=== PATIENT | male | born 1975 | race Two or more races ===

== ENCOUNTER → 2024-11-22 | Outpatient (CLI) | payer BC, SELFPAY ==
[2024-11-22 08:09] LABS: Collection Type, Urine Clean Catch; Squamous Epithelial Cell,Urine 0 /hpf (0-5)
[2024-11-22 08:43] LABS: Basophils % (Auto) 1 % (0-2.5); Eosinophils # (Auto) 0.1 Thou/mm3 (0.0-0.5); Eosinophils % (Auto) 2 % (0-10); Hemoglobin 11.6 g/dL (13.5-16.0); Immature Granulocytes % (Auto) 1 % (0-0); Immature Granulocytes Auto 0.03 Thou/mm3 (0.00-0.00); Lymphocytes # (Auto) 0.8 Thou/mm3 (1.0-4.8); Lymphocytes % (Auto) 17 % (10-50); Mean Corpuscular HGB Conc 31.4 g/dl (31.0-37.0); Mean Corpuscular Hemoglobin 26.8 pg (25.0-35.0); Mean Corpuscular Volume 86 fL (80-100); Monocytes # (Auto) 0.8 Thou/mm3 (0.0-0.8); Monocytes % (Auto) 17 % (0-12); Neutrophils % (Auto) 63 % (37-80); Nucleated Red Blood Cell % 0 /100 WBC (0); Platelet Count 196 Thou/mm3 (140-440); RDW Standard Deviation 49.4 fL (35.1-43.9); Red Blood Count 4.33 Miln/mm3 (4.50-5.90); White Blood Count 4.7 Thou/mm3 (3.8-10.6)
[2024-11-22 08:48] LABS: Bacteria,Urine Rare; Bilirubin,Urine Negative (Negative); Blood,Urine Negative (Negative); Clarity,Urine Clear (Clear/Hazy); Color,Urine Yellow (Lt Yel-Yel); Glucose, Urine Negative (Negative); Hyaline Casts,Urine < 1 /hpf (0-1); Ketones,Urine Trace (Negative); Leukocyte Esterase,Urine Negative (Negative); Nitrite,Urine Negative (Negative); PH,Urine 6.5 (5.0-7.0); Protein,Urine Trace (Neg - Trace); RBC,Urine 1 /hpf (0-3); Specific Gravity,Urine 1.022 (1.001-1.035); WBC,Urine 1 /hpf (0-5)
[2024-11-22 08:48] LABS: Glucose Estimated Average 103 mg/dL (80-131); Hemoglobin A1C 5.2 % Hgb (4.8-6.0)
[2024-11-22 09:08] LABS: Creatinine MALB Rnd Ur 158 mg/dL (30-125); Microalbumin Creat Ratio 6 mg/gCrea (<30); Microalbumin, Random Urine 10 mg/L (0-300)
[2024-11-22 09:09] LABS: Alanine Aminotransferase 115 U/L (10-49); Albumin, Serum 4.6 gm/dL (3.5-5.0); Albumin/Globulin Ratio 1.8 (1.2-2.2); Alkaline Phosphatase 75 U/L (46-116); Anion Gap 11 (7-16); Aspartate Amino Transferase 105 U/L (0-34); BUN/Creatinine Ratio 17 Ratio (12-20); Bilirubin,Total 0.8 mg/dL (0.3-1.2); Blood Urea Nitrogen 17 mg/dL (9-23); Calcium 9.3 mg/dL (8.3-10.6); Calcium (Corrected) 9.3 mg/dL (8.5-10.1); Carbon Dioxide 25.3 mMol/L (20.0-31.0); Cardiac Risk Estimate 1.7 RATIO (4.0-6.7); Chloride 97 mMol/L (98-107); Cholesterol 202 mg/dL (132-200); Globulin 2.6 gm/dL (2.3-3.5); Glucose 111 mg/dL (74-106); HDL Cholesterol 122 mg/dL (40-60); LDL Cholesterol,Calculated 66 mg/dL (0-130); Osmolality,Calculated 268 (275-295); Potassium 3.6 mMol/L (3.4-5.1); Sodium 133 mMol/L (136-145); Thyroid Stimulating Hormone 0.92 uIU/mL (0.55-4.78); Total Protein 7.2 gm/dL (5.7-8.2); Triglycerides 69 mg/dL (30-150); eGFR > 60 See Note
[2024-11-22 09:10] LABS: Prostate Specific Antigen 1.93 ng/mL (0-4.00)
[2024-11-22 09:13] LABS: Vitamin B12 933 pg/mL (211-911)
== END | disposition home or self-care (01) ==
PROVIDERS: PCP Internal Medicine; Referring Provider Internal Medicine; Visit Provider Internal Medicine
DX: Z00.00 Encounter for general adult medical examination without abnormal findings (principal); E11.9 Type 2 diabetes mellitus without complications; E78.5 Hyperlipidemia, unspecified; I10 Essential (primary) hypertension
CPT/HCPCS: 36415; 80053; 80061; 81001; 82043; 82306; 82570; 82607; 83036; 84153; 84443; 84550; 85025

== ENCOUNTER 2025-01-23 09:42 | Outpatient (AMB) | payer BC, SELFPAY ==
--- NOTE | 2025-01-23 09:48 | ORTHONT_ITS ---
Vital signs 01/23/25 09:54 Height 1.8 m Height Method Measured Weight 114.986 kg Weight Measurement Method Standing Scale BMI 35.3 BP 144/88 H Blood Pressure Source Automatic Cuff Blood Pressure Location Left Upper Arm Position Sitting Respiration 18 Pulse 97 Pulse Source Monitor Temp 97.6 F Temp Source Temporal Artery Scan Pulse Oximetry (%) 98 Oxygen Delivery Method Room Air Med/Allergies Allergies & Medications Allergies No Known Allergies Allergy (Verified 01/23/25 09:55) Medication Reconciliation amlodipine 10 mg tablet 10 mg PO QDAY #30 tabs 01/31/22 [Rx Confirmed 01/23/25] metformin 500 mg tablet 500 mg PO QDAY 01/31/22 [History Confirmed 01/23/25] losartan 100 mg-hydrochlorothiazide 25 mg tablet 1 tab PO QDAY 06/02/23 [History Confirmed 01/23/25] meloxicam 7.5 mg tablet 7.5 mg PO QDAY #45 tabs 01/23/25 [Rx] Exam Exam Breathing is nonlabored. Patient has a normal mood and affect. Bilateral extremities were evaluated and demonstrates sensation intact to light touch. Palpable pedal pulses are present. No significant edema is present. Bilateral hips were examined. The patient has no pain with log roll of the hips. Internal rotation to 30 degrees and external rotation to 30 degrees is painless. Negative FADIR. Left knee was examined today. The left knee is in reasonable alignment. Range of motion from 0-120 degrees. Knee is stable to varus and valgus as well as AP translation with <5mm. Patient has a negative McMurrays. There is no pain with patellofemoral compression and no crepitus noted. The knee is nontender to palpation. The right knee was also examined. The right knee is in varus alignment. Range of motion from 0-115 degrees. Knee is stable to varus and valgus as well as AP translation with <5mm. Patient has a negative McMurrays. There is no pain with patellofemoral compression and no crepitus noted. The knee is tender to palpation medially. X-rays demonstrate moderate joint space narrowing Assessment and Plan Problem List (1) Arthritis of both knees: Status: Acute Plan: Patient is a pleasant 50-year-old male with bilateral knee pain and bilateral knee arthritis of significant severity. We discussed different treatment options. We will get a weightbearing x-ray and likely do a cortisone injection at the next visit. I also sent him a prescription for meloxicam. Office Procedures GNS Level of Care Nursing/Assessment Patient Status: Initial/New Patient Nursing Assessment/Reassesment: Medication Reconciliation, Orthostatic Vitals, Update PMH in EMR and Vital Signs Coordination of Care: Complex Care and Chronic Disease 1-5, Education Complex Pt/Fam, Consent,records obtained, informed consent, Lab and Imaging orders, Results/Orders obtained and Staff clarify orders New Patient Charge New Patient Point Assignment: 1119 New Patient Point Charge: SPRING FORGER Level 4 (3507-1610) MA Intake Visit Data Collection New Patient or Established: New Patient (never been to [facility]) Reason for Visit:: RIGHT KNEE PAIN EFFUSION Seen by Clinical Staff ONLY (RN/MA): No Program Eligibility Specialist Required: No PCP or OBGYN visit in last 3 months: Yes Hx Now: No Do You Feel Safe at Home: Yes Authorities Contacted: N/A Questionairres Past Medical History Past Medical History Have you ever been diagnosed with any of the following: Cardiology Problems Hypercholesterolemia: No Congestive Heart Failure: No Hypertension: Yes Respiratory Problems Chronic Obstructive Pulmonary Disease (COPD): No Smoking: No Smoking Cessation Counseling: No Smoking Exposure: No Genital/Urinary Problems Renal Disease: No Endocrine Problems Diabetes Mellitus Type 1: No Diabetes Mellitus Type 2: Yes Subjective Visit Visit for: new patient, follow up visit and knee Immunization / Flu Flu Vaccine in the Last 12 Months: No Flu Vaccine Exclusion Criteria: Refused by Patient History of Present Illness Chief complaint: RIGHT KNEE PAIN EFFUSION Date of injury / onset of symptoms: 1 YEAR Patient is a 50-year-old male with a right greater than left knee pain has been ongoing for over a year. He has not had any injections. He tried Celebrex. He has had a history of gout in his right toe. 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
[2025-01-23 09:54] VITALS: BP 144/88; PULSE 97; RESP 18; TEMP 36.4; O2SAT 98; BMI 35.3
--- NOTE | 2025-01-23 10:02 | XR_ITS ---
Examination: Bilateral knees 2 views Right lateral knee left lateral knee 2 views Bilateral axial knees single view Date and time: January 23, 2025 11 1007 hours INDICATIONS: Bilateral knee pain one year worse the last 4 months. FINDINGS: Moderate osteopenia. Advanced narrowing lateral joint space right knee Mild osteoarthritis medial joint space right knee Moderate osteoarthritis right patellofemoral joint Mild narrowing medial joint space left knee Moderate osteoarthritis left patellofemoral joint No fractures IMPRESSION: Advanced narrowing lateral joint space right knee Moderate osteoarthritis right patellofemoral joint
== END 2025-01-23 10:08 | disposition home or self-care (01) ==
LOC: HODSRG 09:42
PROVIDERS: PCP Internal Medicine; Referring Provider Internal Medicine; Supervising Provider Orthopaedic Surgery Adult Reconstructive Orthopaedic Surgery; Visit Provider Orthopaedic Surgery Adult Reconstructive Orthopaedic Surgery
DX: M17.0 Bilateral primary osteoarthritis of knee (principal); M25.562 Pain in left knee; M25.561 Pain in right knee; I10 Essential (primary) hypertension; E11.9 Type 2 diabetes mellitus without complications
CPT/HCPCS: 73564; 99204; G0463

== ENCOUNTER 2025-02-08 07:47 | Outpatient (AMB) | payer BC, SELFPAY ==
[2025-02-08 07:57] VITALS: BP 105/70; PULSE 101; RESP 18; TEMP 36.3; O2SAT 97; BMI 35.6
--- NOTE | 2025-02-08 07:57 | PD.ORTHCLVIS ---
Vital signs 02/08/25 07:57 Height 1.8 m Height Method Measured Weight 115.468 kg Weight Measurement Method Standing Scale BMI 35.6 BP 105/70 Blood Pressure Source Automatic Cuff Blood Pressure Location Left Upper Arm Position Sitting Respiration 18 Pulse 101 H Pulse Source Monitor Temp 97.3 F Temp Source Temporal Artery Scan Pulse Oximetry (%) 97 Oxygen Delivery Method Room Air Med/Allergies Allergies & Medications Allergies No Known Allergies Allergy (Verified 02/08/25 07:58) Medication Reconciliation amlodipine 10 mg tablet 10 mg PO QDAY #30 tabs 01/31/22 [Rx Confirmed 02/08/25] metformin 500 mg tablet 500 mg PO QDAY 01/31/22 [History Confirmed 02/08/25] losartan 100 mg-hydrochlorothiazide 25 mg tablet 1 tab PO QDAY 06/02/23 [History Confirmed 02/08/25] meloxicam 7.5 mg tablet 7.5 mg PO QDAY #45 tabs 01/23/25 [Rx Confirmed 02/08/25] Exam Exam Breathing is nonlabored. Patient has a normal mood and affect. Bilateral extremities were evaluated and demonstrates sensation intact to light touch. Palpable pedal pulses are present. No significant edema is present. Bilateral hips were examined. The patient has no pain with log roll of the hips. Internal rotation to 30 degrees and external rotation to 30 degrees is painless. Negative FADIR. Left knee was examined today. The left knee is in reasonable alignment. Range of motion from 0-120 degrees. Knee is stable to varus and valgus as well as AP translation with <5mm. Patient has a negative McMurrays. There is no pain with patellofemoral compression and no crepitus noted. The knee is nontender to palpation. The right knee was also examined. The right knee is in varus alignment. Range of motion from 0-115 degrees. Knee is stable to varus and valgus as well as AP translation with <5mm. Patient has a negative McMurrays. There is no pain with patellofemoral compression and no crepitus noted. The knee is tender to palpation medially. X-rays demonstrate lateral joint space narrowing on the right and medial joint space narrowing on the left Assessment and Plan Problem List (1) Arthritis of both knees: Status: Acute Plan: Patient is a pleasant 50-year-old male with bilateral knee pain and bilateral knee arthritis of significant severity. We discussed different treatment options. He has significant arthritis and we will start with injections. We discussed that he is on the young side for his age. We also discussed weight loss Recommend knee cortisone injection as patient would like to proceed with conservative treatment at this time. The risks and benefits of the procedure were reviewed with the patient and patient gave verbal consent to continue with the procedure. Procedure: performed by Dr. Yañez Using sterile technique the Right knee was thoroughly prepped with alcohol, and approximately 1 cc of Depo-Medrol 80mg/mL and 4 cc of 0.2% ropivacaine was injected without resistance into the medial tibial femoral joint space. The patient tolerated the procedure. Recommend knee cortisone injection as patient would like to proceed with conservative treatment at this time. The risks and benefits of the procedure were reviewed with the patient and patient gave verbal consent to continue with the procedure. Procedure: performed by Dr. Yañez Using sterile technique the left knee was thoroughly prepped with alcohol, and approximately 1 cc of Depo-Medrol 80mg/mL and 4 cc of 0.2% ropivacaine was injected without resistance into the medial tibial femoral joint space. The patient tolerated the procedure. Office Procedures GNS Level of Care Nursing/Assessment Patient Status: Established Patient Nursing Assessment/Reassesment: Medication Reconciliation, Orthostatic Vitals, Update PMH in EMR and Vital Signs Coordination of Care: Complex Care and Chronic Disease 1-5, Education Complex Pt/Fam, Consent,records obtained, informed consent, Results/Orders obtained and Staff clarify orders Established Patient Charge Established Patient Point Assignment: 105 Established Patient Point Charge: EP Level 3 (80-115) Surgical Proc/IM SQ injection Major Surgical Procedure: Yes (BILATERAL KNEE INJECTION) Medication Given Medication Given Medication Given: Yes Documented Dose Given: 1 Route: Infiitration Medication Given Medication Given Medication Given: Yes Documented Dose Given: 1 Route: Infiitration Medication Given Medication Given Medication Given: Yes Documented Dose Given: 4 Route: Infiitration Medication Given Medication Given Medication Given: Yes Documented Dose Given: 4 Route: Infiitration Office Meds methylprednisolone acetate 80 mg/mL suspension for injection Performing Provider: Christiano Yañez MD Performing Location: [facility] Administered by: Christiano Yañez MD on 02/08/25 11:55 Dose Route Admin Location Dispensed Lot Number Expiration Date Package [facility] Lidar Analyst 80 mg intra-articular 1 mL [id number] 11/03/26 [address]-0 [id number] [employer] methylprednisolone acetate 80 mg/mL suspension for injection Performing Provider: Christiano Yañez MD Performing Location: [facility] Administered by: Christiano Yañez MD on 02/08/25 11:55 Dose Route Admin Location Dispensed Lot Number Expiration Date Package NDC NDC Lidar Analyst 80 mg intra-articular 1 mL [id number] 11/03/26 [address]-0 [id number] [employer] ropivacaine (PF) 2 mg/mL (0.2 %) injection solution Performing Provider: Christiano Yañez MD Performing Location: [facility] Administered by: Christiano Yañez MD on 02/08/25 11:55 Dose Route Admin Location Dispensed Lot Number Expiration Date Package NDC NDC Lidar Analyst 20 mL Infiltration 20 mL [id number] 07/06/27 29810-127-31 [id number] [facility] ropivacaine (PF) 2 mg/mL (0.2 %) injection solution Performing Provider: Christiano Yañez MD Performing Location: [facility] Administered by: Christiano Yañez MD on 02/08/25 11:55 Dose Route Admin Location Dispensed Lot Number Expiration Date Package NDC NDC Lidar Analyst 20 mL Infiltration 20 mL [id number] 07/06/27 83256-030-38 [id number] [facility] Intake Visit Data Collection New Patient or Established: Established Patient (seen at [facility] within 3 years) Reason for Visit:: XRAY RESULTS/POSSIBLE BILATERAL KNEE INJECTION Seen by Clinical Staff ONLY (RN/MA): No Drier Tender Required: No PCP or OBGYN visit in last 3 months: Yes Hx Now: No Do You Feel Safe at Home: Yes Authorities Contacted: N/A Questionairres Past Medical History Past Medical History Have you ever been diagnosed with any of the following: Cardiology Problems Hypercholesterolemia: No Congestive Heart Failure: No Hypertension: Yes Respiratory Problems Chronic Obstructive Pulmonary Disease (COPD): No Smoking: No Smoking Cessation Counseling: No Smoking Exposure: No Genital/Urinary Problems Renal Disease: No Endocrine Problems Diabetes Mellitus Type 1: No Diabetes Mellitus Type 2: Yes Subjective Visit Visit for: follow up visit and knee Immunization / Flu Flu Vaccine in the Last 12 Months: No Flu Vaccine Exclusion Criteria: Refused by Patient History of Present Illness Chief complaint: XRAY RESULTS/POSSIBLE BILATERAL KNEE INJECTION Date of injury / onset of symptoms: 1 YEAR Patient is a 50-year-old male with a right greater than left knee pain has been ongoing for over a year. He has not had any injections. He tried Celebrex. He has had a history of gout in his right toe. 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
== END 2025-02-08 08:30 | disposition home or self-care (01) ==
LOC: HODSRG 07:47
PROVIDERS: PCP Internal Medicine; Referring Provider Internal Medicine; Supervising Provider Orthopaedic Surgery Adult Reconstructive Orthopaedic Surgery; Visit Provider Orthopaedic Surgery Adult Reconstructive Orthopaedic Surgery
DX: M17.0 Bilateral primary osteoarthritis of knee (principal); M25.562 Pain in left knee; M25.561 Pain in right knee; I10 Essential (primary) hypertension; E11.9 Type 2 diabetes mellitus without complications
CPT/HCPCS: 20610; 99213; J1010; J2795; G0463